=== PATIENT | male | born 1960 | race Caucasian/White ===

== ENCOUNTER → 2021-06-03 15:54 | Outpatient (CLI) | payer SELFPAY, OTHER ==
[2021-05-18 13:07] VITALS: BMI 27.5
--- NOTE | 2021-06-03 15:57 | MRI_ITS ---
STUDY: MRI RIGHT SHOULDER REASON FOR EXAM: Male, 61 years old. RIGHT shoulder pain and decreased ROM s/p injury 2.5 weeks ago TECHNIQUE: Standardized fat and water weighted pulse sequences were obtained in all 3 orthogonal planes. COMPARISON: None. FINDINGS: Partial undersurface tears are present in the far anterior aspect of the supra spinatus tendon at the greater tuberosity insertion site with proximal mild to moderate tendinosis of the remaining fibers. A small interstitial tear is also present in the superior lateral fibers of the subscapularis tendon. A truncation tear of the anterior inferior aspect of the glenoid labrum is present with mild edema is seen in the overlying cartilage and subchondral region of the glenoid suggesting an impaction injury to this region. A small joint effusion is also present. A mild sprain injury of the anterior joint capsule is also present. Normal infraspinatus tendon. Normal subscapularis tendon. Normal teres minor tendon. Normal supraspinatus muscle. Normal infraspinatus muscle. Normal subscapularis muscle. Normal teres minor muscle. Normal glenohumeral articulation. There is a cortical erosion at the insertion of the supraspinatus tendon. Normal biceps labral complex. Normal intracapsular long biceps tendon. Normal capsulo- ligamentous complex. Normal rotator interval. Normal acromioclavicular articulation. There is a Type II morphology (curved), with a neutral orientation. There is no subacromial-subdeltoid bursal fluid. Normal visualized coracohumeral and coracoacromial ligaments. Normal quadrilateral space. Normal axillary space. Normal deltoid muscle. Normal trapezius muscle. MRI/Upper Ext Joint Only(Routine) IMPRESSION: 1. Partial undersurface tears are present in the far anterior aspect of the supra spinatus tendon at the greater tuberosity insertion site with proximal mild to moderate tendinosis of the remaining fibers. 2. A small interstitial tear is also present in the superior lateral fibers of the subscapularis tendon. 3. A truncation tear of the anterior inferior aspect of the glenoid labrum is present with mild edema is seen in the overlying cartilage and subchondral region of the glenoid suggesting an impaction injury to this region. 4. Small joint effusion. 5. Mild sprain injury of the anterior joint capsule is also present. Electronically Signed: Valdo Rodgers MD at 19:51 EDT , Service support ,
--- NOTE | 2021-06-03 16:00 | RAD_ITS ---
STUDY: X-RAY - ORBITS REASON FOR EXAM: Male, 61 years old. HX METAL TO EYE; PRE MRI TECHNIQUE: 2 view(s) of the orbits were obtained. COMPARISON: None. FINDINGS: Normal bilateral orbits without a metallic orbital foreign body. Normal visualized facial bones. Normal paranasal sinuses. No visualized fractures. The soft tissue structures are unremarkable. RAD/Orbits for Foreign Body IMPRESSION: No demonstrated metallic orbital foreign body. The patient is cleared for an MRI examination. Electronically Signed: Valdo Rodgers MD at 16:33 EDT , Service support ,
== END ==
PROVIDERS: PCP Family Medicine; Referring Provider Orthopaedic Surgery; Visit Provider Orthopaedic Surgery
DX: S46.011A Strain of muscle(s) and tendon(s) of the rotator cuff of right shoulder, initial encounter (principal); S46.811A Strain of other muscles, fascia and tendons at shoulder and upper arm level, right arm, initial encounter; S43.491A Other sprain of right shoulder joint, initial encounter; X58.XXXA Exposure to other specified factors, initial encounter
CPT/HCPCS: 70030; 73221

== ENCOUNTER 2021-08-19 08:30 | Outpatient (RCR) | payer OTHER, SELFPAY ==
[2021-05-18 13:07] VITALS: BMI 27.5
--- NOTE | 2021-06-07 10:23 | HP.PTEVAL ---
Patient's Visit Information EM JAIMES is a 61 year old M referred to Physical Therapy by Dr. Graeme Che DO with a diagnosis of Anterior labral and capsular strain/anterior instability. Date of Evaluation: 06/07/21 Physical Therapist: PHIL Ramírez - Visit Plan Frequency: 2x /Week Duration: 2 Months Plan: 2X/ week for 2 weeks to start for PROM/AAROM/AROM and progression of ROM to strengthening once he is able to gain more ROM. Pt would ultimately like a HEP only but he is not ready for that at this time. HEP: PENDULUMS and scapular retraction - Subjective Pt had a fall going down steps and injured his R shoulder. He had nothing broken except a stretched bone. He fell 3 weeks ago today. It is getting better. He struggles to get his arm up overhead. They did an MRI and x-ray. said it will heal but it takes time and PT. When he lays down he feels his shoulder slipping out of place but it goes back into place. He is learning how to manuver without that happening now. He is R handed. He sleeps but is miserable by morning. Laying down or moving it the wrong way is the worst thing he can do. - Pain R shoulder pain Pain Intensity (Out of 10): 0 Pain Intensity Range: 7, 8 - Objective R shoulder PROM flexion approx 80 degrees, abd approx 95 degrees, ER to 50 degrees with pain at end range, IR to L5. AFTER WORKIN on PROM was able to get pt to approx 120 degrees flexion and 160 degrees abd. Pt had about 10 degrees AROM R shoulder flexion with increase pain. ATTEMPTED pulleys but pt could only get at most 90 degrees and he had increase pain the more he did which was about 8 reps. He has AROM R bicep flexion. Attempted testing ER on the R and he was unable too. Pt was able to do pendulums and shoulder retraction without issue. - Balance/Special Test Scores Quick DASH Score: 52.2725 - Goals Goal 1:: I HEP Goal Time Frame: 6-8 Weeks Goal 2:: Increase R shoulder AROM to 120 degrees elevation without pain Goal Time Frame: 6-8 Weeks Goal 3:: Be able to sleep at night without having the constant feeling of R shoulder popping out of place Goal Time Frame: 6-8 Weeks Goal 4:: Increase R shoulder MMT to 4/5 flex, abd, ER/IR Goal Time Frame: 6-8 Weeks - Rehabilitation Potential Rehabilitation Potential: Good - Anticipated Interventions Patient/Client Instruction: Educate patient on: Condition, Plan of Care For the Purpose of:: To decrease pain, To decrease swelling/inflammation, To increase ROM, To improve nutrient delivery to tissue, To improve muscle performance and motor function, To improve ability to perform ADL's, To increase tolerance to activity/condition/position, To improve performance and independence with ADL's, To decrease level of supervision to perform tasks, To improve ability of physical actions for home/community/work/leisure, To improve health of tissue, To decrease soft tissue restriction, To increase flexibility/ROM Therapeutic Exercise to Include: Strength training, Balance training, Postural training, Flexibilty training, Passive ROM, Active ROM, Roma Exercises For the Purpose of:: To decrease pain, To increase ROM, To improve nutrient delivery to tissue, To improve muscle performance and motor function, To improve ability to perform ADL's, To increase tolerance to activity/condition/position, To improve performance and independence with ADL's, To decrease level of supervision to perform tasks, To improve ability of physical actions for home/community/work/leisure, To improve health of tissue, To decrease soft tissue restriction, To increase flexibility/ROM Manual Therapy Techniques to Include: Mobilization, Passive ROM For the Purpose of:: To decrease pain, To decrease swelling/inflammation, To increase ROM, To improve nutrient delivery to tissue, To improve muscle performance and motor function, To improve ability to perform ADL's, To increase tolerance to activity/condition/position, To improve performance and independence with ADL's, To decrease level of supervision to perform tasks, To improve health of tissue, To decrease soft tissue restriction IF ES: Yes Cryotherapy (ice pack, ice massage): Yes Ultrasound (thermal/non thermal): Yes For the Purpose of:: To decrease pain, To increase ROM, To improve nutrient delivery to tissue, To improve muscle performance and motor function, To improve ability to perform ADL's, To increase tolerance to activity/condition/position, To improve performance and independence with ADL's, To decrease level of supervision to perform tasks, To improve ability of physical actions for home/community/work/leisure, To improve health of tissue, To decrease soft tissue restriction, To increase flexibility/ROM Thank you for the opportunity to evaluate your patient. For Medicare and Medicare HMO plans, please review the plan of care and approve it. It will need to be FAXED BACK to us at [phone] for Medicare purposes. For Medicare only, by signing this I certify the plan of care. Please let me know if there are questions or concerns regarding this plan of care. Physician Signature: Date:
--- NOTE | 2021-08-19 08:52 | HP.PTDCSUM ---
It has been my pleasure to treat EM JAIMES referred by Dr. Graeme Che DO, with the diagnosis of Anterior labral and capsular strain/anterior instability for a total of 9 visit(s). Discharge Date: 08/19/21 Please see the following information for a summary of their discharge status. Subjective: Sleeping is much better and he still sleeps on his pile of pillows. He can raise his arm but not completely. He is able to carry things. R shoulder pain Pain Intensity (Out of 10): 2 % Improvement: 80 Objective/Function: R shoulder AROM: flex 130 degrees. abd 120 degrees. R shld ER MMT: 4-/5 Goal 1:: I HEP Goal Progress: Goal Met Goal 2:: Increase R shoulder AROM to 120 degrees elevation without pain Goal Progress: Progressing Goal 3:: Be able to sleep at night without having the constant feeling of R shoulder popping out of place Goal Progress: Goal Met Goal 4:: Increase R shoulder MMT to 4/5 flex, abd, ER/IR Goal Progress: Progressing Plan: DC PT to continued HEP Discharge Comments: DC PT to HEP If there are questions or concerns regarding this patient's physical therapy, please feel free to call me at [phone]. Thank you for the referral of this patient. Sincerely, Keiry Hadley, MPT Balance/Gait/Functional tests - Balance/Special Test Scores Quick DASH Score: 25.0000
== END 2021-08-19 12:45 | disposition home or self-care (01) ==
LOC: PT 08:30
PROVIDERS: PCP Family Medicine; Referring Provider Orthopaedic Surgery; Visit Provider Orthopaedic Surgery
DX: S46.811D Strain of other muscles, fascia and tendons at shoulder and upper arm level, right arm, subsequent encounter (principal); M25.311 Other instability, right shoulder
CPT/HCPCS: 97110; 97140; 97161; 97530